=== PATIENT | male | born 1975 | race American Indian/Alaskan Native ===

== ENCOUNTER 2020-11-30 06:53 | Day surgery (SDC) | payer OTHER ==
[2020-11-30] MEDS ORDERED: ASPIRIN EC 325 MG TAB PO NR (07:19)
[2020-11-30 07:52] LABS: Basophils # (Auto) 0.1 K/mm3 (0.0-0.1); Basophils % (Auto) 1.4 % (0.0-1.8); Eosinophils # (Auto) 0.1 K/mm3 (0.0-0.4); Eosinophils % (Auto) 2.3 % (0.0-4.3); Lymphocytes # (Auto) 2.3 K/mm3 (1.2-5.4); Mean Corpuscular HGB Conc 36 % (32-34); Mean Corpuscular Volume 73 fl (84-94); Monocytes # (Auto) 0.6 K/mm3 (0.0-0.8); Monocytes % (Auto) 11.6 % (0.0-7.3); Platelet Count 190 K/mm3 (140-440); Red Blood Count 5.49 M/mm3 (3.65-5.03); Red Cell Distribution Width 19.5 % (13.2-15.2)
[2020-11-30] MEDS ORDERED: SODIUM CHLORIDE 0.9% 500 ML 500 ML IV SCH (08:00)
[2020-11-30 08:27] LABS: Hematocrit 40.2 % (35.5-45.6); Hemoglobin 14.6 gm/dl (11.8-15.2)
[2020-11-30] MEDS ORDERED: HEPARIN 10,000 UNITS/10 ML VIAL ONE (08:29)
[2020-11-30] MEDS ORDERED: HEPARIN/NS 5000 UNIT/500ML 1,000 ML IR ONE (08:29)
[2020-11-30] MEDS ORDERED: LIDOCAINE (2%) 20 MG/1 ML VIAL 20 ML MDV INFILTRATI ONE (08:30)
[2020-11-30] MEDS ORDERED: NITROGLYCERIN SYRINGE 3 ML ONE (08:30)
[2020-11-30] MEDS ORDERED: VERAPAMIL 5 MG/2 ML INJ ONE (08:30)
[2020-11-30] MEDS ORDERED: MIDAZOLAM 2 MG/2 ML INJ ONE (08:37)
[2020-11-30] MEDS ORDERED: fentaNYL 100 MCG/2 ML INJ ONE (08:37)
[2020-11-30 08:41] LABS: INR 0.86 (0.87-1.13)
[2020-11-30 09:12] LABS: Blood Urea Nitrogen 18 mg/dL (9-20); Calcium 9.3 mg/dL (8.4-10.2); Hemolysis Index 58
[2020-11-30 09:13] LABS: BUN/Creatinine Ratio 30
[2020-11-30 09:27] LABS: Chol/HDL Ratio 14.92 %; HDL Cholesterol 14 mg/dL (40-59); LDL Cholesterol,Direct TNR mg/dL (50-130)
[2020-11-30] MEDS ORDERED: SODIUM CHLORIDE 0.9% 1000 ML 1,000 ML IV SCH (10:30)
--- NOTE | 2020-11-30 10:39 | Electrocardiograph Report ---
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 significnance No previous ECG available for comparison Electronically Signed On 11-30-2020 10:39:12 EDT by Darrion Tejeda
--- NOTE | 2020-11-30 10:45 | Discharge Summary ---
Short Stay Discharge Plan Activity: advance as tolerated Weight Bearing Status: Full Weight Bearing Diet: low fat, low cholesterol, low salt, diabetic Wound: keep clean and dry Special Instructions: no heavy lifting (3 days), hold Metformin (48 hours) Additional Instructions: Hold Metformin for 48 hours, continue baby aspirin 81 mg daily. Follow up with: DR GINO [Other] - 7 Days HAYLEE PAL MD [Staff Physician] - 7 Days
[2020-11-30] MEDS ORDERED: traMADol 50 MG TAB PO PRN (11:00)
--- NOTE | 2020-11-30 13:03 | Cardiac Catherization Report ---
DATE OF SERVICE: 11/30/2020 CARDIAC CATHETERIZATION REPORT REASON FOR PROCEDURE: The patient is a 45-year-old man with hypertension, diabetes and severe hypertriglyceridemia. He recently underwent outpatient evaluation for chest pain, echocardiogram demonstrated a new onset dilated cardiomyopathy with at least moderate left ventricular systolic dysfunction. Cardiac catheterization and coronary angiography was recommended. PROCEDURES: 1. Left heart catheterization. 2. Selective left and right coronary angiography. 3. Left ventricular angiography. 4. Sedation time start 10:00, end 10:16. DESCRIPTION OF PROCEDURE: The patient was prepped and draped in a sterile fashion after informed consent. The right radial cath site was prepped and draped after a negative Jona's test. The right radial artery was entered using Seldinger technique followed by placement of a 6-Romanian hydrophilic sheath. Routine radial cocktail was administered via the sheath. Selective left and right coronary angiography was performed using #3.5 left Leticia and a #4 right Leticia. The pigtail catheter was used for left ventricular angiography. The catheters were then removed, sheath removed and hemostasis achieved using a TR band. The patient was returned to the postprocedure unit in stable condition. There were no complications. FINDINGS: HEMODYNAMICS: The left ventricular end diastolic pressure was 13. Ascending aortic pressure was 111/78. There was no significant pressure gradient on pullback across the aortic valve. CORONARY ANGIOGRAPHY: The left main coronary artery was angiographically normal. The left anterior descending artery contained mild narrowing in its mid segment. Otherwise, the LAD and its diagonal branches were free of significant disease. A large bifurcating ramus intermedius artery was free of significant disease. The circumflex artery was a small caliber system consisted of one medium-sized obtuse marginal, and was free of significant disease. The right coronary artery was dominant. This vessel contained diffuse mild atherosclerosis of its dvymoaru-ht-dve segment, with an up to 20-30% luminal narrowing of the mid segment. The left ventricle was borderline dilated. There was mild left ventricular systolic dysfunction with very mild diffuse hypokinesis. Left ventricular ejection fraction estimated at 40-45%. CONCLUSION: 1. Mild single-vessel atherosclerosis of the right coronary artery as described above, with no significant obstructive lesions identified. 2. Mild nonischemic cardiomyopathy with mild left ventricular systolic dysfunction, ejection fraction 40-45%. RECOMMENDATIONS: 1. Aggressive risk factor modification including strict management of hypertriglyceridemia. 2. Medical therapy as indicated for mild nonischemic cardiomyopathy. TID: [id number] RECEIPT: [id number] ANDREW/FRANCOISE
[2020-11-30 13:11] VITALS: BP 113/68
== END 2020-11-30 14:00 | disposition home or self-care (01) ==
LOC: CATHLABREC 06:53
PROVIDERS: ATTEND Internal Medicine Cardiovascular Disease
DX: R07.9 Chest pain, unspecified (principal); I25.10 Atherosclerotic heart disease of native coronary artery without angina pectoris; I42.9 Cardiomyopathy, unspecified; I10 Essential (primary) hypertension; E11.9 Type 2 diabetes mellitus without complications; E78.1 Pure hyperglyceridemia; E66.3 Overweight; Z79.82 Long term (current) use of aspirin; Z79.899 Other long term (current) drug therapy; Z88.8 Allergy status to other drugs, medicaments and biological substances; Z98.890 Other specified postprocedural states
CPT/HCPCS: 36415; 80048; 80061; 85025; 85610; 85730; 93005; 93458; 99156; C1894; J1644; J2250; J3010; J7030; J7040; Q9967